=== PATIENT | female | born 1950 | race Caucasian/White ===

== ENCOUNTER 2017-06-26 12:52 | Emergency (ER) | payer BC ==
[~2017-06-26] VITALS: Ht 167.6 cm; Wt 114.6 kg
[~2017-06-26 12:52] MED LIST: ASPIRIN LOW81 M1; AZOR1 TA1; HYDROXYZ HCL25 MG PO; MAGNESIUM-OX400 MG PO; METFORMIN500 M1; NAPROXEN SOD; SIMVASTATIN20 MG PO; TRIAMCINOLON0.11 EX
[2017-06-26] MEDS ORDERED: [UNRECOGNIZED DRUG - OTHER] PO (13:28)
[2017-06-26] MEDS ORDERED: ALOGLIPTIN PO (13:28)
[2017-06-26] MEDS ORDERED: NAPROXEN SOD220 M3 PO (13:29)
[2017-06-26] MEDS ORDERED: TOPROL XL PO (13:30)
[2017-06-26] MEDS ORDERED: ALDACTONE25 MG PO (13:30)
[2017-06-26] MEDS ORDERED: AMLODIPINE PO (13:31)
[2017-06-26] MEDS ORDERED: [UNRECOGNIZED DRUG - OTHER] PO (13:31)
[2017-06-26] MEDS ORDERED: LOMOTIL2.5 MG PO (13:32)
[2017-06-26] MEDS ORDERED: ESOMEPRAZOLE MA40 MG PO (13:32)
[2017-06-26] MEDS ORDERED: MAGNESIUM250 M1 PO (13:33)
[2017-06-26] MEDS ORDERED: ASPIRIN 8181 MG PO (13:33)
[2017-06-26] MEDS ORDERED: FLEXERIL PO (14:15)
[2017-06-26] MEDS ORDERED: ULTRAM50 M1 PO (14:15)
[2017-06-26 14:22] VITALS: BP 151/77
== END 2017-06-26 14:22 | disposition home or self-care (01) | DRG 914 ==
LOC: ED 12:52
DX: S09.90XA Unspecified injury of head, initial encounter (principal); S13.9XXA Sprain of joints and ligaments of unspecified parts of neck, initial encounter; E11.9 Type 2 diabetes mellitus without complications; I10 Essential (primary) hypertension; K52.9 Noninfective gastroenteritis and colitis, unspecified; W01.0XXA Fall on same level from slipping, tripping and stumbling without subsequent striking against object, initial encounter; Y92.007 Garden or yard of unspecified non-institutional (private) residence as the place of occurrence of the external cause; Z92.3 Personal history of irradiation

== ENCOUNTER 2022-01-25 09:03 | Emergency (ER) | payer MEDICARE ==
[2022-01-25] VITALS (20 sets, daily range): BP systolic 103–184; BP diastolic 56–118
[~2022-01-25] VITALS: Ht 167.6 cm; Wt 109.0 kg
[~2022-01-25 09:03] MED LIST changes: +ALDACTONE25 MG PO; +ALOGLIPTIN PO; +AMLODIPINE PO; +ASPIRIN 8181 MG PO; +ESOMEPRAZOLE MA40 MG PO; +FLEXERIL PO; +LOMOTIL2.5 MG PO; +MAGNESIUM250 M1 PO; +NAPROXEN SOD220 M3 PO; +TOPROL XL PO; +ULTRAM50 M1 PO; +[UNRECOGNIZED DRUG - OTHER] PO; +[UNRECOGNIZED DRUG - OTHER] PO
[2022-01-25 10:39] LABS: HEMATOCRIT 43.6 % (37.0-47.0); IMMATURE GRANULOCYTES 0.3 % (0.0-5.0); MEAN CELL VOLUME 91.8 fL CALC (80.0-100.0); MEAN CORPUSCULAR HGB 31.6 pG CALC (26.0-32.0); MEAN CORPUSCULAR HGB CONC 34.4 g/dL CAL (32.0-36.0); NEUT# 7.88 thou/uL (2.00-7.15); RED BLOOD COUNT 4.75 mill/uL (4.20-5.60); RED CELL DISTRI WIDTH 12.8 % (11.5-15.5)
[2022-01-25 10:43] LABS: ALBUMIN 4.2 g/dL (3.2-5.0); ALKALINE PHOSPHATASE 99 u/l (38-126); ANION GAP 16 (6-22 (CALC)); BUN 17 mg/dL (8-23); BUN/CREATININE RATIO 22 (12-20 (CALC)); CARBON DIOXIDE 23 mmol/l (22-30); CHLORIDE 105 mmol/l (95-108); CREATININE 0.8 mg/dL (0.5-1.0); GFR FOR AFR.AMER. > 60 ML/MIN (>=60 (CALC)); GFR OTHER RACES > 60 ML/MIN (>=60 (CALC)); POTASSIUM 4.3 mmol/l (3.5-5.1); SGOT/AST 27 u/l (9-36); SODIUM 140 mmol/l (137-146); TOTAL PROTEIN 6.9 g/dL (6.3-8.2)
[2022-01-25 10:46] LABS: BILIRUBIN, TOTAL 0.8 mg/dL (0.0-1.4)
[2022-01-25] MEDS ORDERED: HYDROCO/APAP1 TA9 PO (14:29)
[2022-01-25] MEDS ORDERED: METHOCARBAMOL500 MG PO (14:29)
[2022-01-25] MEDS ORDERED: NAPROXEN500 MG PO (14:29)
== END 2022-01-25 14:44 | disposition home or self-care (01) ==
LOC: ED 09:03
PROVIDERS: Emergency Medicine
DX: M47.26 Other spondylosis with radiculopathy, lumbar region (principal); I10 Essential (primary) hypertension; E11.9 Type 2 diabetes mellitus without complications